=== PATIENT | male | born 1985 | race African-American/Black ===

== ENCOUNTER 2018-06-19 22:52 | Inpatient (IN) | payer MEDICAID ==
[~2018-06-19] VITALS: Ht 170.2 cm; Wt 59.1 kg
[2018-06-19 22:56] VITALS: Ht 170.2 cm; Wt 59.1 kg
[2018-06-19 23:41] LABS: BASOPHIL % 0.1 % (0-2); PLATELET COUNT 373 x10^3mcL (130-400)
[2018-06-19 23:45] LABS: RED CELL DISTRIBUTION WIDTH 17.7 % (11.5-14.5)
[2018-06-20 00:04] LABS: CALCIUM 9.2 mg/dL (8.5-10.1); CARBON DIOXIDE 28.8 mmol/L (21-32); CHLORIDE SERUM 89 mmol/L (98-107); CREATININE SERUM 0.8 mg/dL (0.7-1.3); GFR1 > 60 mL/min; GLUCOSE SERUM 133 mg/dL (74-106); POTASSIUM SERUM 3.1 mmol/L (3.5-5.1); SODIUM SERUM 132 mmol/L (136-145)
[2018-06-20 00:14] LABS: ALKALINE PHOSPHATASE 99 U/L (46-116); ALT/SGPT 10 U/L (16-63); AST/SGOT 13 U/L (15-37); BILIRUBIN TOTAL 0.5 mg/dL (0.20-1.00); TOTAL PROTEIN, SERUM 7.9 g/dL (6.4-8.2)
[2018-06-20 00:16] LABS: ALBUMIN 3.1 g/dL (3.4-5.0)
[2018-06-20 00:17] LABS: LIPASE 1795 IU/L (73-393)
[2018-06-20] MEDS ORDERED: NATURAL IRON65 MG PO (00:22)
[2018-06-20] MEDS ORDERED: HYDRALAZINE HCL25 MG PO (00:22)
[2018-06-20] MEDS ORDERED: TOPROL XL25 MG PO (00:23)
[2018-06-20] MEDS ORDERED: NATURE'S BLEND F1 MG PO (00:23)
[2018-06-20 02:31] LABS: CHOLESTEROL/HDL RATIO 3.1; MAGNESIUM 1.3 mg/dL (1.8-2.4); PHOSPHOROUS 5.3 mg/dL (2.5-4.9)
[2018-06-20 02:39] LABS: FREE T4 1.48 ng/dL (0.76-1.46); FREE THYROXINE INDEX 3.9 ug/dL (1.4-4.5); T4(THYROXINE) 11.4 ug/dL (4.7-13.3)
[2018-06-20 03:04] LABS: T3 TOTAL 1.39 ng/mL
[2018-06-20 03:29] VITALS: BP 136/91
[2018-06-20 03:30] VITALS: BP 136/91
[2018-06-20 03:35] LABS: UA SPECIFIC GRAVITY >=1.030 (1.005-1.035); microscopic required? YES; urine erythrocyte NEGATIVE (NEGATIVE)
[2018-06-20 04:27] LABS: AMPHETAMINE QUAL UR NONE DETECTED (See below)
[2018-06-20 06:08] VITALS: BP 143/92
[2018-06-20 06:18] LABS: BASOPHIL % 0.3 % (0-2); PLATELET COUNT 281 x10^3mcL (130-400)
[2018-06-20 06:26] LABS: CALCIUM 8.6 mg/dL (8.5-10.1); CARBON DIOXIDE 30.7 mmol/L (21-32); CHLORIDE SERUM 94 mmol/L (98-107); CREATININE SERUM 0.8 mg/dL (0.7-1.3); GFR1 > 60 mL/min; GLUCOSE SERUM 106 mg/dL (74-106); MAGNESIUM 2.1 mg/dL (1.8-2.4); PHOSPHOROUS 4.3 mg/dL (2.5-4.9); POTASSIUM SERUM 3.7 mmol/L (3.5-5.1); SODIUM SERUM 131 mmol/L (136-145)
[2018-06-20 06:36] LABS: RED CELL DISTRIBUTION WIDTH 17.5 % (11.5-14.5)
[2018-06-20 08:53] VITALS: BP 122/87
[2018-06-20 16:21] VITALS: BP 139/91
[2018-06-20 20:01] VITALS: BP 128/89
[2018-06-21 04:36] VITALS: BP 122/91
[2018-06-21 06:03] LABS: BASOPHIL % 0.4 % (0-2); PLATELET COUNT 204 x10^3mcL (130-400)
[2018-06-21 06:27] LABS: CALCIUM 8.7 mg/dL (8.5-10.1); CARBON DIOXIDE 29.5 mmol/L (21-32); CHLORIDE SERUM 97 mmol/L (98-107); CREATININE SERUM 0.5 mg/dL (0.7-1.3); GFR1 > 60 mL/min; GLUCOSE SERUM 77 mg/dL (74-106); MAGNESIUM 1.7 mg/dL (1.8-2.4); PHOSPHOROUS 3.6 mg/dL (2.5-4.9); POTASSIUM SERUM 3.5 mmol/L (3.5-5.1); SODIUM SERUM 134 mmol/L (136-145)
[2018-06-21 06:34] LABS: RED CELL DISTRIBUTION WIDTH 17.1 % (11.5-14.5)
[2018-06-21 07:21] LABS: AMYLASE 629 U/L (25-115); LIPASE 2629 IU/L (73-393)
[2018-06-21] MEDS ORDERED: TOP50 PO (07:26)
[2018-06-21] MEDS ORDERED: APAP/HYDROCODON1 T13 PO (07:28)
[2018-06-21] MEDS ORDERED: MOR2I IV (07:28)
[2018-06-21] MEDS ORDERED: FOL1 PO (07:29)
[2018-06-21] MEDS ORDERED: COL100 PO (07:29)
[2018-06-21] MEDS ORDERED: TYL325 PO (07:29)
[2018-06-21] MEDS ORDERED: PAN PO (07:29)
[2018-06-21] MEDS ORDERED: PHOS PO (07:29)
[2018-06-21] MEDS ORDERED: THI100 PO (07:30)
[2018-06-21 09:07] VITALS: BP 131/95
[2018-06-21 09:29] VITALS: BP 131/95
== END 2018-06-21 10:50 | disposition short-term general hospital (02) | DRG 282 ==
LOC: ED 22:52 → MU 06-20 01:59
PROVIDERS: Emergency Medicine; Family Medicine
DX: K85.90 Acute pancreatitis without necrosis or infection, unspecified (principal); N17.0 Acute kidney failure with tubular necrosis; C25.0 Malignant neoplasm of head of pancreas; E83.39 Other disorders of phosphorus metabolism; E83.42 Hypomagnesemia; D64.9 Anemia, unspecified; E87.1 Hypo-osmolality and hyponatremia; E87.6 Hypokalemia; I10 Essential (primary) hypertension; F10.10 Alcohol abuse, uncomplicated; F12.10 Cannabis abuse, uncomplicated; R80.9 Proteinuria, unspecified; Z68.20 Body mass index [BMI] 20.0-20.9, adult; F17.210 Nicotine dependence, cigarettes, uncomplicated
CPT/HCPCS: 83880; 84439; J2270; J2405; J3010; J3475; J3480; J3490; J7030; J7120; Q0092

== ENCOUNTER 2018-08-06 03:37 | Inpatient (IN) | payer MEDICAID ==
[~2018-08-06] VITALS: Ht 170.2 cm; Wt 56.7 kg
[~2018-08-06 03:37] MED LIST: APAP/HYDROCODON1 T13 PO; COL100 PO; FOL1 PO; HYDRALAZINE HCL25 MG PO; MOR2I IV; NATURAL IRON65 MG PO; NATURE'S BLEND F1 MG PO; PAN PO; PHOS PO; THI100 PO; TOP50 PO; TOPROL XL25 MG PO; TYL325 PO
[2018-08-06 04:34] LABS: BASOPHIL % 0.4 % (0-2)
[2018-08-06 04:59] LABS: ALKALINE PHOSPHATASE 106 U/L (46-116); ALT/SGPT 11 U/L (16-63); AST/SGOT 11 U/L (15-37); BILIRUBIN TOTAL 0.26 mg/dL (0.20-1.00); CALCIUM 9.4 mg/dL (8.5-10.1); CARBON DIOXIDE 24.2 mmol/L (21-32); CHLORIDE SERUM 98 mmol/L (98-107); CREATININE SERUM 0.7 mg/dL (0.7-1.3); FREE T4 1.45 ng/dL (0.76-1.46); GFR1 > 60 mL/min; GLUCOSE SERUM 123 mg/dL (74-106); SODIUM SERUM 137 mmol/L (136-145)
[2018-08-06 05:01] LABS: ALBUMIN 2.9 g/dL (3.4-5.0); TOTAL PROTEIN, SERUM 8.3 g/dL (6.4-8.2)
[2018-08-06 05:02] LABS: POTASSIUM SERUM 2.8 mmol/L (3.5-5.1); RED CELL DISTRIBUTION WIDTH 18.4 % (11.5-14.5)
[2018-08-06 05:21] LABS: PLATELET COUNT 707 x10^3mcL (130-400)
[2018-08-06 07:00] LABS: MAGNESIUM 1.6 mg/dL (1.8-2.4); PHOSPHOROUS 4.9 mg/dL (2.5-4.9)
[2018-08-06 07:03] LABS: CHOLESTEROL/HDL RATIO 7.1
[2018-08-06 08:07] LABS: UA SPECIFIC GRAVITY 1.025 (1.005-1.035); microscopic required? YES; urine erythrocyte 1+ (NEGATIVE)
[2018-08-06 08:13] LABS: AMPHETAMINE QUAL UR NONE DETECTED (See below)
[2018-08-06 10:39] VITALS: BP 141/95
[2018-08-06 13:02] VITALS: BP 141/95
[2018-08-06 15:17] LABS: APPEARANCE FLUID TURBID; COLOR FLUID RED; SOURCE FLUID PLEURAL
[2018-08-06 15:18] LABS: RBC FLUID 10593 /cumm; WBC FLUID 3757 /cumm
[2018-08-06 15:44] LABS: LYMPHOCYTE FLUID 10 %
[2018-08-06 15:49] VITALS: BP 141/109
[2018-08-06 19:41] VITALS: BP 151/112
[2018-08-06 23:00] VITALS: BP 161/101
[2018-08-07 03:18] VITALS: BP 141/91
[2018-08-07 05:50] LABS: BASOPHIL % 0.1 % (0-2)
[2018-08-07 05:54] LABS: CALCIUM 8.8 mg/dL (8.5-10.1); CARBON DIOXIDE 23.3 mmol/L (21-32); CHLORIDE SERUM 105 mmol/L (98-107); CREATININE SERUM 0.5 mg/dL (0.7-1.3); GFR1 > 60 mL/min; GLUCOSE SERUM 93 mg/dL (74-106); MAGNESIUM 1.6 mg/dL (1.8-2.4); POTASSIUM SERUM 4.5 mmol/L (3.5-5.1); SODIUM SERUM 138 mmol/L (136-145)
[2018-08-07 05:55] LABS: PLATELET COUNT 463 x10^3mcL (130-400); RED CELL DISTRIBUTION WIDTH 18.2 % (11.5-14.5)
[2018-08-07 07:21] VITALS: BP 146/82
[2018-08-07 07:47] VITALS: Ht 170.2 cm; Wt 56.7 kg
[2018-08-07 11:36] VITALS: BP 134/68
[2018-08-07 14:32] VITALS: BP 138/87
[2018-08-07 15:09] VITALS: BP 140/87
[2018-08-07 21:01] VITALS: BP 136/89
[2018-08-08 05:13] VITALS: BP 140/100
[2018-08-08 06:26] LABS: CALCIUM 8.8 mg/dL (8.5-10.1); CARBON DIOXIDE 25.3 mmol/L (21-32); CHLORIDE SERUM 102 mmol/L (98-107); CREATININE SERUM 0.5 mg/dL (0.7-1.3); GFR1 > 60 mL/min; GLUCOSE SERUM 91 mg/dL (74-106); MAGNESIUM 1.6 mg/dL (1.8-2.4); PHOSPHOROUS 4.7 mg/dL (2.5-4.9); POTASSIUM SERUM 4.4 mmol/L (3.5-5.1); SODIUM SERUM 138 mmol/L (136-145)
[2018-08-08 06:52] LABS: LIPASE 6121 IU/L (73-393)
[2018-08-08 07:01] LABS: BASOPHIL % 0 % (0-2); PLATELET COUNT 460 x10^3mcL (130-400); RED CELL DISTRIBUTION WIDTH 18.6 % (11.5-14.5)
[2018-08-08 09:08] VITALS: BP 137/96
[2018-08-08 12:20] VITALS: BP 134/96
[2018-08-08 16:52] VITALS: BP 148/101
[2018-08-09] VITALS (8 sets, daily range): BP systolic 137–145; BP diastolic 69–102
[2018-08-09 06:58] LABS: BASOPHIL % 0.1 % (0-2)
[2018-08-09 07:38] LABS: PLATELET COUNT 620 x10^3mcL (130-400); RED CELL DISTRIBUTION WIDTH 18.7 % (11.5-14.5)
[2018-08-09 08:30] LABS: CALCIUM 8.8 mg/dL (8.5-10.1); CARBON DIOXIDE 24.6 mmol/L (21-32); CHLORIDE SERUM 96 mmol/L (98-107); CREATININE SERUM 0.4 mg/dL (0.7-1.3); GFR1 > 60 mL/min; GLUCOSE SERUM 90 mg/dL (74-106); MAGNESIUM 1.9 mg/dL (1.8-2.4); PHOSPHOROUS 5.4 mg/dL (2.5-4.9); POTASSIUM SERUM 3.9 mmol/L (3.5-5.1); SODIUM SERUM 133 mmol/L (136-145)
[2018-08-10 05:59] VITALS: BP 146/92
[2018-08-10 06:29] LABS: BASOPHIL % 0.3 % (0-2)
[2018-08-10 06:32] LABS: PLATELET COUNT 567 x10^3mcL (130-400); RED CELL DISTRIBUTION WIDTH 18.1 % (11.5-14.5)
[2018-08-10 06:47] LABS: CALCIUM 9.1 mg/dL (8.5-10.1); CARBON DIOXIDE 27.5 mmol/L (21-32); CHLORIDE SERUM 95 mmol/L (98-107); CREATININE SERUM 0.6 mg/dL (0.7-1.3); GFR1 > 60 mL/min; GLUCOSE SERUM 93 mg/dL (74-106); MAGNESIUM 1.8 mg/dL (1.8-2.4); PHOSPHOROUS 4.8 mg/dL (2.5-4.9); POTASSIUM SERUM 4.4 mmol/L (3.5-5.1); SODIUM SERUM 133 mmol/L (136-145)
[2018-08-10 08:41] VITALS: BP 151/94
[2018-08-10 13:09] VITALS: BP 135/86
[2018-08-10 16:23] VITALS: BP 135/86
== END 2018-08-10 17:00 | disposition short-term general hospital (02) | DRG 139 ==
LOC: ED 03:37 → IC 06:16 → DU 08-07 18:25
PROVIDERS: Emergency Medicine; Internal Medicine
PROC: 0W9B30Z Drainage of Left Pleural Cavity with Drainage Device, Percutaneous Approach (ICD-10-PCS; principal; 2018-08-06)
PROC: 0W9B30Z Drainage of Left Pleural Cavity with Drainage Device, Percutaneous Approach (ICD-10-PCS; 2018-08-09)
DX: J18.9 Pneumonia, unspecified organism (principal); N17.0 Acute kidney failure with tubular necrosis; K86.3 Pseudocyst of pancreas; J90 Pleural effusion, not elsewhere classified; E44.0 Moderate protein-calorie malnutrition; E83.42 Hypomagnesemia; J95.811 Postprocedural pneumothorax; I16.0 Hypertensive urgency; I10 Essential (primary) hypertension; J45.909 Unspecified asthma, uncomplicated; E78.5 Hyperlipidemia, unspecified; E87.6 Hypokalemia; D64.9 Anemia, unspecified; F17.210 Nicotine dependence, cigarettes, uncomplicated; F10.10 Alcohol abuse, uncomplicated; F12.10 Cannabis abuse, uncomplicated; Z68.1 Body mass index [BMI] 19.9 or less, adult; Y84.4 Aspiration of fluid as the cause of abnormal reaction of the patient, or of later complication, without mention of misadventure at the time of the procedure; Y92.230 Patient room in hospital as the place of occurrence of the external cause
CPT/HCPCS: 32551; 32555; 36600; 84439; C1729; J0456; J2001; J2060; J2250; J2270; J2405; J2543; J2930; J3010; J3370; J3475; J3480; J3490; J7030; J7620; Q0092; Q9967

== ENCOUNTER 2018-08-20 19:16 | Emergency (ER) | payer SELFPAY ==
[~2018-08-20] VITALS: Ht 170.2 cm; Wt 54.4 kg
[2018-08-20 19:23] VITALS: Ht 170.2 cm; Wt 54.4 kg
[2018-08-20 21:13] VITALS: BP 135/92
== END 2018-08-20 21:13 | disposition home or self-care (01) ==
LOC: ED 19:16
DX: J90 Pleural effusion, not elsewhere classified (principal); F17.210 Nicotine dependence, cigarettes, uncomplicated; Z71.6 Tobacco abuse counseling; I10 Essential (primary) hypertension
CPT/HCPCS: 99406